=== PATIENT | female | born 1995 | race African-American/Black ===

== ENCOUNTER 2016-08-22 16:30 | Emergency (ER) | payer SELFPAY ==
--- NOTE | 2016-08-22 17:20 | ER Document Report ---
ED Medical Screen (RME) - General Stated Complaint: ABDOMINAL PAIN, VAGINAL PAIN Notes: 20 yo female c/o pain to lower abdomen and vagina x 4-5 days. no fever. no n/ v. + dysuria. + discharge. TRAVEL OUTSIDE OF THE [place] IN LAST 30 DAYS: No - Related Data Allergies/Adverse Reactions: No Known Allergies Allergy (Verified 04/23/16 19:08) Physical Exam - Vital signs Vitals: Temp Pulse Resp BP Pulse Ox 98.8 F 89 16 120/71 99 08/22/16 16:58 08/22/16 16:58 08/22/16 16:58 08/22/16 16:58 08/22/16 16:58 Course - Vital Signs Vital signs: Temp Pulse Resp BP Pulse Ox 98.8 F 89 16 120/71 99 08/22/16 16:58 08/22/16 16:58 08/22/16 16:58 08/22/16 16:58 08/22/16 16:58
[2016-08-22 17:50] LABS: ABSOLUTE EOSINOPHILS # (AUTO) 0.1 10^3/uL (0.0-0.6); ABSOLUTE LYMPHOCYTES (AUTO) 2.5 10^3/uL (0.5-4.7); ABSOLUTE MONOCYTES (AUTO) 0.6 10^3/uL (0.1-1.4); ABSOLUTE NEUT (AUTO) 5.6 10^3/uL (1.7-8.2); BASOPHILS % (AUTO) 0.5 % (0-2); EOSINOPHILS % (AUTO) 1.6 % (0-6); HEMATOCRIT 42.3 % (36.0-47.0); HEMOGLOBIN 14.3 g/dL (12.0-15.5); HGB HCT DIFFERENCE 0.6; LYMPHOCYTES % (AUTO) 28.4 % (13-45); MEAN CORPUSCULAR HEMOGLOBIN 32.6 pg (27.0-33.4); MEAN CORPUSCULAR HGB CONC 33.7 g/dL (32.0-36.0); MEAN CORPUSCULAR VOLUME 97 fl (80-97); MONOCYTES % (AUTO) 6.3 % (3-13); RED BLOOD COUNT 4.38 10^6/uL (3.72-5.28); SEGMENTED NEUTROPHILS % (AUTO) 63.2 % (42-78); WHITE BLOOD COUNT 8.8 10^3/uL (4.0-10.5)
[2016-08-22 17:55] LABS: APPEARANCE,URINE CLOUDY; BILIRUBIN,URINE NEGATIVE (NEGATIVE); GLUCOSE, URINE NEGATIVE (NEGATIVE); KETONES,URINE NEGATIVE (NEGATIVE); LEUKOCYTE ESTERASE,URINE NEGATIVE (NEGATIVE); NITRITE,URINE NEGATIVE (NEGATIVE); PROTEIN,URINE NEGATIVE (NEGATIVE); URINE SPECIFIC GRAVITY 1.021; UROBILINOGEN,URINE NEGATIVE mg/dL (<2.0)
[2016-08-22 19:30] LABS: CHLAM PCR NOT DETECTED (NOT DETECT)
--- NOTE | 2016-08-22 22:25 | ER Document Report ---
ED GI/ - General Chief Complaint: Abdominal Cramping Stated Complaint: ABDOMINAL PAIN, VAGINAL PAIN Notes: This is a 20 y/o female who presents with recurrent foul smelling vaginal discharge for the past 6 months, which she has been told previously was BV and she has been treated, but the symptoms recurr. No fever, chills, systemic symptoms. No dysuria. No vaginal itching. No pelvic pain, although mild dyspareunia. She does not have a PCP and has been seen [facility] at [facility]. TRAVEL OUTSIDE OF THE [place] IN LAST 30 DAYS: No - Related Data Allergies/Adverse Reactions: metronidazole [From Flagyl] Allergy (Mild, Verified 08/22/16 22:03) Hives Past Medical History - General Information source: Patient - Social History Smoking Status: Never Smoker Chew tobacco use (# tins/day): No Frequency of alcohol use: None Drug Abuse: None Family History: None, Reviewed & Not Pertinent Patient has suicidal ideation: No Patient has homicidal ideation: No - Past Medical History Cardiac Medical History: Reports: None Neurological Medical History: Reports: None Renal/ Medical History: Reports: Other - chlamydia treated 1 year ago. Denies : Hx Peritoneal Dialysis Past Surgical History: Reports: Hx Orthopedic Surgery - lt hip pin - Immunizations Hx Diphtheria, Pertussis, Tetanus Vaccination: Yes Review of Systems - Review of Systems Notes: REVIEW OF SYSTEMS: CONSTITUTIONAL : Denies fever, chills, or sweats. Denies recent illness. EENT: Denies eye, ear, throat, or mouth pain or symptoms. Denies nasal or sinus congestion. CARDIOVASCULAR: Denies chest pain. RESPIRATORY: Denies cough, cold, or chest congestion. Denies shortness of breath, difficulty breathing, or wheezing. GASTROINTESTINAL: Denies abdominal pain. Denies nausea, vomiting, or diarrhea. GENITOURINARY: as per HPI FEMALE GENITOURINARY: Denies vaginal bleeding, abnormal or irregular periods. LMP: 08/12 MUSCULOSKELETAL: Denies neck or back pain or joint pain or swelling. SKIN: Denies rash or skin lesions. HEMATOLOGIC : Denies easy bruising or bleeding. LYMPHATIC: Denies swollen, enlarged glands. NEUROLOGICAL: Denies altered mental status or loss of consciousness. Denies headache. PSYCHIATRIC: Denies anxiety or stress or depression. ALL OTHER SYSTEMS REVIEWED AND NEGATIVE. Physical Exam - Vital signs Vitals: Temp Pulse Resp BP Pulse Ox 98.8 F 89 16 120/71 99 08/22/16 16:58 08/22/16 16:58 08/22/16 16:58 08/22/16 16:58 08/22/16 16:58 - Notes Notes: PHYSICAL EXAMINATION: GENERAL: Well-appearing, well-nourished and in no acute distress. HEAD: Atraumatic, normocephalic. EYES: Pupils equal round and reactive to light, extraocular movements intact, sclera anicteric, conjunctiva are normal. ENT: nares patent, oropharynx clear without exudates. Moist mucous membranes. NECK: Normal range of motion, supple without lymphadenopathy LUNGS: Breath sounds clear to auscultation bilaterally and equal. No wheezes rales or rhonchi. HEART: Regular rate and rhythm without murmurs ABDOMEN: Soft, nontender, normoactive bowel sounds. No guarding, no rebound. No masses appreciated. PELVIC: No external lesions. Small amount thin white discharge noted in vault. Cervix visualized wnl. Cultures taken. Bimanual: No CMT, no adnexal masses or TTP EXTREMITIES: Normal range of motion, no edema NEUROLOGICAL: Cranial nerves grossly intact PSYCH: Normal mood, normal affect. SKIN: Warm, Dry, normal turgor, no rashes or lesions noted. Course - Re-evaluation Re-evalutation: 08/23/16 01:20 Discussed that her symptoms clinically are consistent with bacterial vaginosis. Will treat with clindamycin, as pt states she is allergic to flagyl which is what she has been treated with previously. Return precautions discussed. - Vital Signs Vital signs: Temp Pulse Resp BP Pulse Ox 98.8 F 85 16 114/72 100 08/22/16 16:58 08/23/16 00:48 08/23/16 00:48 08/23/16 00:48 08/23/16 00:48 - Laboratory Result Diagrams: 08/22/16 17:20 Laboratory results interpreted by me: 08/22/16 17:20 Urine Ascorbic Acid 40 H Discharge - Discharge Clinical Impression: Bacterial vaginosis Vaginitis Qualifiers: Chronicity: subacute Qualified Code(s): N76.1 - Subacute and chronic vaginitis Condition: Good Disposition: HOME, SELF-CARE Additional Instructions: VAGINOSIS, BACTERIAL: Your exam shows you have bacterial vaginosis. This condition is due to an overgrowth of bacteria in the vagina. Symptoms may include vaginal itching or pain, a smelly discharge, and sometimes burning with urination. Normally this is not transmitted by sexual contact. Vaginosis can be treated with oral or topical antibiotics. Metronidazole ( Flagyl) pills are usually effective. Topical vaginal creams include Cleocin and Metro-Gel. You should avoid sexual contact until your symptoms are all better. Call the doctor if you develop pelvic pain, fever, or problems with urination, or if you don't improve as expected. ANTIBIOTIC THERAPY: You have been given an antibiotic prescription. It's important that you take all the medication, unless instructed otherwise by your physician. Failure to complete the entire course can result in relapse of your condition. Common side effects of antibiotics include nausea, intestinal cramping, or diarrhea. Women may develop vaginal yeast infections, and babies can get yeast (thrush) in the mouth following the use of antibiotics. Contact your physician if you develop significant side effects from this medication. Allergy to this antibiotic can result in hives, wheezing, faintness, or itching. If symptoms of allergy occur, stop the medication and call the doctor. FOLLOW-UP CARE: If you have been referred to a physician for follow-up care, call the physician s office for an appointment as you were instructed or within the next two days. If you experience worsening or a significant change in your symptoms, notify the physician immediately or return to the Emergency Department at any time for re-evaluation. Prescriptions: Clindamycin HCl 300 mg PO TID #42 capsule
[2016-08-23 00:50] VITALS: BP 114/72
[2016-08-23 01:08] LABS: CHLAM PCR NOT DETECTED (NOT DETECT)
== END 2016-08-23 00:49 | disposition home or self-care (01) ==
LOC: ER 16:30
DX: N76.1 Subacute and chronic vaginitis (principal); B96.89 Other specified bacterial agents as the cause of diseases classified elsewhere; R10.9 Unspecified abdominal pain; R10.2 Pelvic and perineal pain
CPT/HCPCS: 36415; 81001; 81025; 85025; 87210; 87491; 87591; 99283

== ENCOUNTER 2016-12-18 22:52 | Emergency (ER) | payer MEDICAID ==
[2016-12-18 23:45] LABS: APPEARANCE,URINE CLOUDY; BILIRUBIN,URINE NEGATIVE (NEGATIVE); GLUCOSE, URINE NEGATIVE (NEGATIVE); KETONES,URINE TRACE mg/dL (NEGATIVE); LEUKOCYTE ESTERASE,URINE TRACE (NEGATIVE); NITRITE,URINE NEGATIVE (NEGATIVE); PROTEIN,URINE NEGATIVE (NEGATIVE); URINE SPECIFIC GRAVITY 1.028; UROBILINOGEN,URINE NEGATIVE mg/dL (<2.0)
--- NOTE | 2016-12-19 01:09 | ER Document Report ---
HPI - HPI Patient complains to provider of: Vaginal itching Onset: Yesterday Onset/Duration: Gradual Pain Level: 3 Context: 21-year-old female complains of vaginal itching and introitus irritation. No lesions. She is really here in the emergency department tonight because she wants to be checked for STDs which she did not originally reveal to me during the history. She does not know what her sexual partner is doing and whether she has contracted an STD. Treated for chlamydia over a year ago. No vaginal discharge without odor. No fever or chills. No pelvic pain. Associated Symptoms: None Exacerbated by: Denies Relieved by: Denies - ROS ROS below otherwise negative: Yes Systems Reviewed and Negative: Yes All other systems reviewed and negative - REPRODUCTIVE LMP: 2 wks ago - DERM Skin Color: Normal Past Medical History - General Information source: Patient - Social History Smoking Status: Never Smoker Frequency of alcohol use: None Drug Abuse: None Lives with: Family Family History: Reviewed & Not Pertinent - Medical History Medical History: Negative Renal/ Medical History: Denies: Hx Peritoneal Dialysis Surgical Hx: Negative Past Surgical History: Reports: Hx Orthopedic Surgery - lt hip pin - Immunizations Hx Diphtheria, Pertussis, Tetanus Vaccination: Yes Vertical Provider Document - CONSTITUTIONAL Agree With Documented VS: Yes Exam Limitations: No Limitations General Appearance: No Apparent Distress - INFECTION CONTROL TRAVEL OUTSIDE OF THE [place] IN LAST 30 DAYS: No - HEENT HEENT: Normal ENT Exam - NECK Neck: Supple - RESPIRATORY Respiratory: Breath Sounds Normal, No Respiratory Distress - CARDIOVASCULAR Cardiovascular: Regular Rate, Regular Rhythm - GI/ABDOMEN Gastrointestinal: Abdomen Soft, Abdomen Non-Tender - REPRODUCTIVE Female Genitalia: Normal Inspection. negative: CMT, Adnexal Pain-Right, Adnexal Pain-Left Notes: No vaginal discharge - MUSCULOSKELETAL/EXTREMETIES Musculoskeletal/Extremeties: JEFFY CELAYA - NEURO Level of Consciousness: Awake, Alert - DERM Integumentary: Warm, Dry, No Rash Course - Re-evaluation Re-evalutation: 12/19/16 02:29 Date is negative test is negative wet prep shows evidence of bacterial vaginosis. The patient wants to be treated for gonorrhea and chlamydia because she suspects her partner is having sex with other people. 12/19/16 02:37 - Laboratory Laboratory results interpreted by me: 12/18/16 23:20 Urine Ketones TRACE H Ur Leukocyte Esterase TRACE H Urine Ascorbic Acid 40 H Discharge - Discharge Clinical Impression: introitus pruritis, Bacterial vaginosis Condition: Good Disposition: HOME, SELF-CARE Instructions: Azithromycin ([facility]), [employer], Rocephin ([facility]), Vaginitis ( [facility]), Vaginosis, Bacterial ([facility]), Clindamycin ([facility]) Additional Instructions: call me in 3 hours for the STD culture result no sex with partner if positive until he is treated also no douching to er any concerns Prescriptions: Clindamycin HCl [Cleocin 150 mg Capsule] 300 mg PO TID #42 capsule Forms: Return to Work
[2016-12-19] MEDS ORDERED: CEFTRIAXONE INJ 250 MG VIAL IM ONE (01:53)
[2016-12-19] MEDS ORDERED: AZITHROMYCIN 250 MG TABLET PO ONE (01:53)
[2016-12-19] MEDS ORDERED: ONDANSETRON 4 MG TAB.RAPDIS PO ONE (01:53)
[2016-12-19] MEDS ORDERED: LIDOCAINE 1% INJ-PF (10 MG/ML) 30 ML SDV INJ ONE (02:03)
[2016-12-19] MEDS ORDERED: LIDOCAINE 1% INJ-PF (10 MG/ML) 30 ML SDV ONE (02:03)
[2016-12-19 03:18] VITALS: BP 121/74
[2016-12-19 03:45] LABS: CHLAM PCR NOT DETECTED (NOT DETECT)
== END 2016-12-19 03:18 | disposition home or self-care (01) ==
LOC: ER 22:52
DX: L29.2 Pruritus vulvae (principal); N76.0 Acute vaginitis; B96.89 Other specified bacterial agents as the cause of diseases classified elsewhere
CPT/HCPCS: 99283; 96372; 87210; 81025; 81001; 87491; 87591; S0119; J3490; J0696

== ENCOUNTER 2017-02-24 15:51 | Emergency (ER) | payer SELFPAY ==
[2017-02-24] MEDS ORDERED: LIDOCAINE 2% VISCOUS SOLN 20 ML UDCUP PO ONE (16:58)
[2017-02-24] MEDS ORDERED: METOCLOPRAMIDE HCL ORAL SOLN 10 MG/10 ML UDCUP PO ONE (16:58)
[2017-02-24] MEDS ORDERED: MAG HYDROX/AL HYDROX/SIMETH SUSP 30 ML UDCUP PO ONE (16:58)
--- NOTE | 2017-02-24 16:58 | ER Document Report ---
ED General - General Chief Complaint: Epigastric pain/ back pain Stated Complaint: ABDOMINAL PAIN Time Seen by Provider: 02/24/17 16:54 Mode of Arrival: Ambulatory Information source: Patient Notes: 21-year-old female presents with complaints of not sensation in the middle of her chest. Patient feels like a piece of food is stuck. Denies any fevers or chills denies any nausea vomiting denies any history of gastric reflux denies any chest pain shortness breath difficulty breathing TRAVEL OUTSIDE OF THE [place] IN LAST 30 DAYS: No - HPI Onset: Just prior to arrival Onset/Duration: Sudden Quality of pain: Achy, Other Severity: Mild Pain Level: 1 Associated symptoms: Other Exacerbated by: Food Relieved by: Denies Similar symptoms previously: No Recently seen / treated by doctor: No - Related Data Allergies/Adverse Reactions: metronidazole [From Flagyl] Allergy (Mild, Verified 12/18/16 23:06) Hives Past Medical History - Social History Smoking Status: Never Smoker Cigarette use (# per day): No Chew tobacco use (# tins/day): No Smoking Education Provided: No Family History: Reviewed & Not Pertinent Renal/ Medical History: Denies: Hx Peritoneal Dialysis Past Surgical History: Reports: Hx Orthopedic Surgery - lt hip pin - Immunizations Hx Diphtheria, Pertussis, Tetanus Vaccination: Yes Review of Systems - Review of Systems Notes: REVIEW OF SYSTEMS: CONSTITUTIONAL : Denies fever, chills, or sweats. Denies recent illness. EENT: Denies eye, ear, throat, or mouth pain or symptoms. Denies nasal or sinus congestion or discharge. Denies throat, tongue, or mouth swelling or difficulty swallowing. CARDIOVASCULAR: Denies chest pain. Denies palpitations or racing or irregular heart beat. Denies ankle edema. RESPIRATORY: Denies cough, cold, or chest congestion. Denies shortness of breath, difficulty breathing, or wheezing. GASTROINTESTINAL: Admits to knot sensation in epigastric region GENITOURINARY: Denies difficulty urinating, painful urination, burning, frequency, blood in urine, or discharge. FEMALE GENITOURINARY: Denies vaginal bleeding, heavy or abnormal periods, irregular periods. Denies vaginal discharge or odor. MUSCULOSKELETAL: Denies back or neck pain or stiffness. Denies joint pain or swelling. SKIN: Denies rash, lesions or sores. HEMATOLOGIC : Denies easy bruising or bleeding. LYMPHATIC: Denies swollen, enlarged glands. NEUROLOGICAL: Denies confusion or altered mental status. Denies passing out or loss of consciousness. Denies dizziness or lightheadedness. Denies headache. Denies weakness or paralysis or loss of use of either side. Denies problems with gait or speech. Denies sensory loss, numbness, or tingling. Denies seizures. PSYCHIATRIC: Denies anxiety or stress. Denies depression, suicidal ideation, or homicidal ideation. ALL OTHER SYSTEMS REVIEWED AND NEGATIVE. PHYSICAL EXAMINATION: GENERAL: Well-appearing, well-nourished and in no acute distress. HEAD: Atraumatic, normocephalic. EYES: Pupils equal round and reactive to light, extraocular movements intact, conjunctiva are normal. ENT: Nares patent, oropharynx clear without exudates. Moist mucous membranes. NECK: Normal range of motion, supple without lymphadenopathy LUNGS: Breath sounds clear to auscultation bilaterally and equal. No wheezes rales or rhonchi. HEART: Regular rate and rhythm without murmurs ABDOMEN: Soft, nontender, nondistended abdomen. No guarding, no rebound. No masses appreciated. Female : deferred Musculoskeletal: Normal range of motion, no pitting or edema. No cyanosis. NEUROLOGICAL: Cranial nerves grossly intact. Normal speech, normal gait. Normal sensory, motor exams PSYCH: Normal mood, normal affect. SKIN: Warm, Dry, normal turgor, no rashes or lesions noted. Dictation was performed using [employer] voice recognition software Physical Exam - Vital signs Vitals: Temp Pulse Resp BP Pulse Ox 99.1 F 77 16 123/80 100 02/24/17 16:11 02/24/17 16:11 02/24/17 16:11 02/24/17 16:11 02/24/17 16:11 Course - Re-evaluation Re-evalutation: 02/24/17 17:09 On physical examination patient has an absolutely no distress, she will be given GI cocktail as this appears to be related to her esophagus. Patient has no signs of a hiatal hernia or any cardiac lung involvement 02/24/17 17:53 Patient notes significant relief of sensation after GI cocktail. I will discharge her home with Pepcid After performing a Medical Screening Examination, I estimate there is LOW risk for ACUTE APPENDICITIS, BOWEL OBSTRUCTION, ACUTE CHOLECYSTITIS, PERFORATED DIVERTICULITIS, INCARCERATED HERNIA, PANCREATITIS, PELVIC INFLAMMATORY DISEASE, PERFORATED ULCER, ECTOPIC , or TUBO-OVARIAN ABSCESS, thus I consider the discharge disposition reasonable. Also, there is no evidence or peritonitis , sepsis, or toxicity. I have reevaluated this patient multiple times and no significant life threatening changes are noted. The patient and I have discussed the diagnosis and risks, and we agree with discharging home with close follow-up with the understanding that symptoms and presentations can change. We also discussed returning to the Emergency Department immediately if new or worsening symptoms occur. We have discussed the symptoms which are most concerning (e.g., bloody stool, fever, changing or worsening pain, vomiting) that necessitate immediate return. - Vital Signs Vital signs: Temp Pulse Resp BP Pulse Ox 99.1 F 77 16 123/80 100 02/24/17 16:11 02/24/17 16:11 02/24/17 16:11 02/24/17 16:11 02/24/17 16:11 Discharge - Discharge Clinical Impression: Esophageal spasm GERD (gastroesophageal reflux disease) Qualifiers: Esophagitis presence: with esophagitis Qualified Code(s): K21.0 - Gastro- esophageal reflux disease with esophagitis Condition: Stable Disposition: HOME, SELF-CARE Instructions: Reflux Disease (GERD) ([facility]) Additional Instructions: Follow up with your physician tomorrow for further care or return to the ED IMMEDIATELY if symptoms worsen or new concerns occur. If you cannot afford to follow up with your primary care physician a list of low cost clinics have been provided at the end of your discharge papers as well. Prescriptions: Famotidine [Pepcid 20 mg Tablet] 20 mg PO DAILY #30 tablet
[2017-02-24 18:25] VITALS: BP 117/70
== END 2017-02-24 17:55 | disposition home or self-care (01) ==
LOC: ER 15:51
DX: K21.0 Gastro-esophageal reflux disease with esophagitis (principal); K22.4 Dyskinesia of esophagus; Z88.1 Allergy status to other antibiotic agents
CPT/HCPCS: 99283; J3490

== ENCOUNTER 2017-02-27 20:40 | Emergency (ER) | payer SELFPAY ==
[2017-02-27 21:32] VITALS: BP 126/82
[2017-02-27] MEDS ORDERED: IBUPROFEN 600 MG TABLET PO ONE (21:32)
[2017-02-27 23:52] LABS: ABSOLUTE BASOPHILS # (AUTO) 0.1 10^3/uL (0.0-0.2); ABSOLUTE LYMPHOCYTES (AUTO) 1.2 10^3/uL (0.5-4.7); ABSOLUTE MONOCYTES (AUTO) 0.6 10^3/uL (0.1-1.4); ABSOLUTE NEUT (AUTO) 10.5 10^3/uL (1.7-8.2); BASOPHILS % (AUTO) 0.6 % (0-2); EOSINOPHILS % (AUTO) 0.3 % (0-6); HEMATOCRIT 43.3 % (36.0-47.0); HEMOGLOBIN 14.5 g/dL (12.0-15.5); HGB HCT DIFFERENCE 0.2; LYMPHOCYTES % (AUTO) 9.6 % (13-45); MEAN CORPUSCULAR HEMOGLOBIN 32.7 pg (27.0-33.4); MEAN CORPUSCULAR HGB CONC 33.6 g/dL (32.0-36.0); MEAN CORPUSCULAR VOLUME 97 fl (80-97); MONOCYTES % (AUTO) 5.2 % (3-13); RED BLOOD COUNT 4.44 10^6/uL (3.72-5.28); RED CELL DISTRIBUTION WIDTH 12.4 % (11.5-14.0); SEGMENTED NEUTROPHILS % (AUTO) 84.3 % (42-78); WHITE BLOOD COUNT 12.4 10^3/uL (4.0-10.5)
[2017-02-28 00:05] LABS: APPEARANCE,URINE CLOUDY; BILIRUBIN,URINE NEGATIVE (NEGATIVE); GLUCOSE, URINE NEGATIVE (NEGATIVE); KETONES,URINE 20 mg/dL (NEGATIVE); LEUKOCYTE ESTERASE,URINE SMALL (NEGATIVE); NITRITE,URINE NEGATIVE (NEGATIVE); PROTEIN,URINE NEGATIVE (NEGATIVE); URINE SPECIFIC GRAVITY 1.031; UROBILINOGEN,URINE NEGATIVE mg/dL (<2.0)
[2017-02-28 00:29] LABS: ALANINE AMINOTRANSFERASE 24 U/L (9-52); ALBUMIN 5.1 g/dL (3.5-5.0); ALKALINE PHOSPHATASE 72 U/L (38-126); ANION GAP 15 (5-19); ASPARTATE AMINO TRANSFERASE 22 U/L (14-36); BILIRUBIN,DIRECT 0.3 mg/dL (0.0-0.4); BILIRUBIN,TOTAL 0.9 mg/dL (0.2-1.3); BLOOD UREA NITROGEN 9 mg/dL (7-20); CALCIUM 10.2 mg/dL (8.4-10.2); CARBON DIOXIDE 23 mmol/L (22-30); CHLORIDE 101 mmol/L (98-107); CREATININE RESULT 0.95 mg/dL (0.52-1.25); GLUCOSE 84 mg/dL (75-110); LIPASE 65.9 U/L (23-300); POTASSIUM 4.2 mmol/L (3.6-5.0); SODIUM 138.9 mmol/L (137-145); TOTAL PROTEIN 8.8 g/dL (6.3-8.2)
--- NOTE | 2017-02-28 01:51 | ER Document Report ---
ED General - General Chief Complaint: Pelvic Pain Stated Complaint: FEVER,ABDOMINAL PAIN Time Seen by Provider: 02/28/17 01:42 Notes: Surgical see no evidence with left lower abdominal pain for 1 day with nausea vomiting and subjective fevers. Constant. Worsening. She had some chest discomfort last couple days with nausea and was diagnosed with reflux but this feels different. The patient is very reticent to share information and I have to ask her multiple in-depth questions but she shares that she has had an STD and she is concerned about having one now. She also thinks that she has had continuous bacterial vaginosis and that no antibiotics work for it. She is allergic to Flagyl. She has discharge but is no different than prior. TRAVEL OUTSIDE OF THE [place] IN LAST 30 DAYS: No - Related Data Allergies/Adverse Reactions: metronidazole [From Flagyl] Allergy (Mild, Verified 02/27/17 21:28) Hives Past Medical History - General Information source: Patient - Social History Smoking Status: Never Smoker Family History: Reviewed & Not Pertinent Renal/ Medical History: Denies: Hx Peritoneal Dialysis Past Surgical History: Reports: Hx Orthopedic Surgery - lt hip pin - Immunizations Hx Diphtheria, Pertussis, Tetanus Vaccination: Yes Review of Systems - Review of Systems Notes: REVIEW OF SYSTEMS GEN: Denies fever, chills, weight loss ENT: Denies sore throat, nasal discharge, ear pain EYES: Denies blurry vision, eye pain, discharge CV: Denies chest pain, palpitations, edema RESP: Denies cough, shortness of breath, wheezing GI: Abdominal pain nausea MSK: Denies joint pain/swelling, edema, SKIN: Denies rash, skin lesions LYMPH: Denies swollen glands/lymph nodes NEURO: Denies headache, focal weakness or numbness, dizziness PSYCH: Denies depression, suicidal or homicidal ideation PHYSICAL EXAMINATION General: No acute distress, well-nourished Head: Atraumatic, normocephalic ENT: Mouth normal, oropharynx moist, no exudates or tonsillar enlargement Eyes: Conjunctiva normal, pupils equal, lids normal Neck: No JVD, supple, no guarding CVS: Normal rate, regular rhythm, no murmurs Resp: No resp distress, equal and normal breath sounds bilaterally GI: Nondistended, soft, far left lower quadrant tenderness to palpation, no rebound or guarding Genitourinary: Normal external female genitalia. Dry cheesy discharge in the vagina without beefy red cervix. Minimal cervical motion tenderness. Positive left adnexal tenderness without mass. Ext: No deformities, no edema, normal range of motion in upper and lower ext Back: No CVA or midline TTP Skin: No rash, warm Lymphatic: No lymphadeopathy noted Neuro: Awake, alert. Face symmetric. GCS 15. Physical Exam - Vital signs Vitals: Temp Pulse Resp BP Pulse Ox 100.5 F H 106 H 16 126/82 H 99 02/27/17 21:28 02/27/17 21:28 02/27/17 21:28 02/27/17 21:28 02/27/17 21:28 Course - Re-evaluation Re-evalutation: 02/28/17 01:51 21-year-old female with history of STDs presents with left lower quadrant pain subjective fevers, elevated temperature but no fever in the ED and left lower quadrant tenderness. Also has some discharge. I think this is very likely to be PID or cervicitis plus or minus bacterial vaginosis. Will do pelvic exam. Labs have already been sent and show mild leukocytosis. Urine is essentially normal. 02/28/17 02:49 02/28/17 02:49 General exam shows cheesy discharge. Wet mount ordered. The patient states she has chronic BV and does not want to take any meds, she is doing home remedies. She had minimal cervical motion tenderness however had some left adnexal tenderness. I ordered ceftriaxone and azithromycin I will plan to discharge her with 10 day course of doxycycline for presumed pelvic inflammatory disease. 02/28/17 03:16 - Vital Signs Vital signs: Temp Pulse Resp BP Pulse Ox 100.5 F H 106 H 16 126/82 H 99 02/27/17 21:28 02/27/17 21:28 02/27/17 21:28 02/27/17 21:28 02/27/17 21:28 - Laboratory Result Diagrams: 02/27/17 23:24 02/27/17 23:24 Laboratory results interpreted by me: 02/27/17 02/27/17 02/27/17 23:24 23:24 23:24 WBC 12.4 H Seg Neutrophils % 84.3 H Lymphocytes % 9.6 L Absolute Neutrophils 10.5 H Total Protein 8.8 H Albumin 5.1 H Urine Ketones 20 H Ur Leukocyte Esterase SMALL H Urine Ascorbic Acid 40 H Discharge - Discharge Clinical Impression: Pelvic inflammatory disease (PID) Condition: Good Disposition: HOME, SELF-CARE Instructions: Antibiotic Therapy ([facility]), Pelvic Inflammatory Disease ([facility]) Additional Instructions: Please establish care with an RADIATION / CHEMISTRY TECHNICIAN or family medicine provider to address her ongoing pelvic inflammation and vaginal infection. Prescriptions: Doxycycline Hyclate 100 mg PO BID #14 capsule
[2017-02-28] MEDS ORDERED: AZITHROMYCIN 250 MG TABLET PO ONE (02:48)
[2017-02-28] MEDS ORDERED: LIDOCAINE 1% INJ-PF (10 MG/ML) 30 ML SDV INFIL ONE (02:48)
[2017-02-28] MEDS ORDERED: CEFTRIAXONE INJ 250 MG VIAL IM ONE (02:48)
== END 2017-02-28 03:20 | disposition home or self-care (01) ==
LOC: ER 20:40
DX: N73.9 Female pelvic inflammatory disease, unspecified (principal); K21.9 Gastro-esophageal reflux disease without esophagitis; R10.32 Left lower quadrant pain; R11.2 Nausea with vomiting, unspecified; R09.89 Other specified symptoms and signs involving the circulatory and respiratory systems; Z88.1 Allergy status to other antibiotic agents
CPT/HCPCS: 36415; 80053; 81001; 83690; 84703; 85025; 87210; 99284